=== PATIENT | male | born 1990 | race Caucasian/White ===

== ENCOUNTER 2021-01-31 19:34 | Emergency (ER) | payer OTHER ==
[~2021-01-31] VITALS: Ht 172.7 cm; Wt 82.0 kg
[2021-01-31] MEDS ORDERED: LORAZEPAM 2MG/ML CPJ IV STA (20:17)
[2021-01-31 20:34] LABS: BASOPHILS % 0.5 % (0.0-2.0); EOSINOPHILS % 1.7 % (0.0-5.0); HEMATOCRIT. 39.4 % (42.0-52.0); HEMOGLOBIN. 12.9 g/dL (14.0-18.0); LYMPHOCYTES % 15.4 % (20.0-50.0); MEAN CORPUSCULAR HEMOGLOBIN 27.1 pg (28.0-32.0); MEAN CORPUSCULAR VOLUME 82.7 fL (80.0-94.0); MEAN PLATELET VOLUME 7.7 fl (7.4-10.4); MONOCYTES % 8.9 % (2.0-8.0); NEUTROPHILS % 73.5 % (40.0-76.0); PLATELET 299 x1000/uL (130-400); RED BLOOD CELL COUNT 4.77 mill/uL (4.7-6.1); RED CELL DISTRIBUTION WIDTH 13.3 % (11.6-14.6)
[2021-01-31 20:42] LABS: CHLORIDE 111 mEq/L (98-107)
[2021-01-31 20:46] LABS: ETHANOL BLOOD < 10 mg/dL
[2021-01-31 20:50] LABS: CREATINE KINASE 569 IU/L (39-308)
[2021-01-31] MEDS: SODIUM CHLORIDE 0.9% 1,000 ML IV ONE (21:00)
[2021-01-31 22:01] LABS: CLARITY URINE CLOUDY (CLEAR); COLOR URINE DARK YELLOW (YELLOW); KETONES URINE 1+ (NEGATIVE); LEUKOCYTE ESTERASE URINE NEGATIVE (NEGATIVE); NITRITE URINE NEGATIVE (NEGATIVE); OCCULT BLOOD URINE NEGATIVE (NEGATIVE); PH URINE 5.5 (4.5-8.0); PROTEIN URINE 1+ (NEGATIVE); SPECIFIC GRAVITY URINE 1.036 (1.005-1.030)
[2021-01-31 22:21] LABS: *AMPHETAMINES SCREEN URINE PRESUMTIVE POSITIVE (NEGATIVE); *BARBITURATES SCREEN URINE NEGATIVE (NEGATIVE); *BENZODIAZEPINES SCREEN URINE NEGATIVE (NEGATIVE); *COCAINE SCREEN URINE NEGATIVE (NEGATIVE); METHADONE URINE SCREEN NEGATIVE (NEGATIVE); OPIATES URINE SCREEN NEGATIVE (NEGATIVE)
[2021-01-31 22:22] LABS: CANNABINOID URINE SCREEN PRESUMTIVE POSITIVE (NEGATIVE); PHENCYCLIDINE URINE SCREEN NEGATIVE (NEGATIVE)
[2021-02-01 06:26] VITALS: BP 140/89
== END 2021-02-01 06:29 | disposition home or self-care (01) ==
LOC: ER 19:34
DX: F15.10 Other stimulant abuse, uncomplicated (principal)
CPT/HCPCS: 36415; 71045; 80053; 80305; 80320; 81003; 82140; 82550; 83690; 85025; 96360; 96361; 99285; J7030; G0480